=== PATIENT | male | born 1975 | race Caucasian/White ===

== ENCOUNTER 2016-06-25 13:45 | Emergency (ER) | payer OTHER ==
[~2016-06-25] VITALS: Ht 182.9 cm; Wt 110.5 kg
[2016-06-25 13:52] VITALS: TEMP 36.7; Ht 182.9 cm; Wt 110.5 kg
--- NOTE | 2016-06-25 14:03 | EMERGENCY ROOM VISIT NOTE ---
History First contact with patient: 13:56 Chief Complaint: HEADACHE Stated Complaint: HEADACHE History of Present Illness The patient is a 40 year old male who presents to the Emergency Room with complaints of "Headache". The patient states that Thursday he was skiing at [employer] when he accidentally fell backwards striking the occipital region of his head. He was wearing a helmet. Patient denies any loss of consciousness. He has had persistent blurred vision, headache as well as nausea. He states that when he woke up Thursday he developed a headache, neck pain, face pain as well as blurred vision and nausea on Thursday morning. Thursday symptoms all seem to worsen, and he was driving when he developed such blurred vision he had to wait one hour before driving again. Today he presents with nausea, blurred vision as well as a headache. He has taken 400 mg of ibuprofen this morning. Patient points to the midline portion of his neck overlying the spinous processes as the location of his neck pain. Review of Systems A complete 10-point Review of Systems was discussed with the patient, with pertinent positives and negatives listed in the History of Present Illness. All remaining Review of Systems questions can be considered negative unless otherwise specified. Past Medical/Surgical History Pneumonia, appendectomy Family History Cancer Social History Smoking Status: Never Smoker Social History: Patient lives at home with and kids and is currently employed. Current/Historical Medications No Active Prescriptions or Reported Meds Allergies Coded Allergies: No Known Allergies (Unverified , 06/25/16) Physical Exam Vital Signs Date Time Temp Pulse Resp B/P Pulse Ox O2 Delivery O2 Flow Rate FiO2 06/25/16 16:10 86 16 127/86 98 06/25/16 13:52 36.7 70 18 133/93 98 Room Air Physical Exam VITAL SIGNS - Vital signs and nursing notes were reviewed. The patient is afebrile, mildly hypertensive at 133/93, nontoxic tachycardia and saturating well on room air 98%. GENERAL -40-year-old male appearing his stated age. Communicates well with provider and answers questions appropriately. SKIN - Gross examination of the entire body surface demonstrates no abrasions or lacerations. HEAD - Normocephalic, Atraumatic. No Blanco's Sign or Raccoon's Eyes. No depressed skull fractures palpable. EYES - PERRL with EOMI bilaterally. Without subconjunctival hemorrhage. Palpebral conjunctiva pink and moist with no injection. EARS - No deformities of external structures noted on gross examination bilaterally. No hemotympanum present. No tympanic perforation noted. Handle of malleus, umbo, cone of light, pars tensa/flaccid all easily visualized. No nystagmus. NOSE - Midline and without cyanosis. No epistaxis or clear watery discharge noted. Septum midline without deviation. No septal hematoma noted. No overlying ecchymosis noted. MOUTH/OROPHARYNX - Without perioral cyanosis. Tongue midline with equal elevation of palate bilaterally. No blood noted in the oropharynx. No tonsillar hypertrophy, erythema, or exudates noted. No dental fractures noted. NECK - no tenderness to palpation over the cervical spinous processes. No cervical paraspinal muscle tenderness noted. LUNGS - Chest wall symmetric without accessory muscle use, intercostals retractions, or central cyanosis. CARDIAC - RRR with S1/S2. No murmur, rubs, or gallops appreciated. EXTREMITIES - No gross deformities noted of the extremities. No tenderness to palpation throughout the extremities. +5/5 strength noted in UE/LE bilaterally. NEUROLOGIC - Cranial nerves II through XII grossly intact. Sensory intact to light touch throughout. Patellar reflexes +2/4. PSYCH - A&Ox3 and cooperates fully with examiner. Pt is very pleasant and interacts well with examiner. Medical Decision & Procedures ER Provider Diagnostic Interpretation: CT HEAD WITHOUT CONTRAST (CT) CLINICAL HISTORY: Fall, dizziness, nausea, headache, blurred vision- 5 days COMPARISON STUDY: No previous studies for comparison. TECHNIQUE: Axial CT of the brain is performed from the vertex to the skull base. IV contrast was not administered for this examination. CT DOSE: 1115.07 mGy.cm FINDINGS: No intra or extra-axial mass lesions are visualized. There is no CT evidence of acute cortical infarction. There is no evidence of midline shift. There is no acute hemorrhage. No calvarial fractures are visualized. There is no evidence of pathologic ventricular dilatation. There is no evidence of acute sinusitis IMPRESSION: No acute intracranial findings Electronically signed by: Aman Calderón M.D. CT OF THE CERVICAL SPINE WITHOUT CONTRAST CLINICAL HISTORY: Neck pain following fall. COMPARISON STUDY: No previous studies for comparison. TECHNIQUE: Helical axial images of the cervical spine were obtained without IV contrast. Sagittal and coronal reconstructions were viewed. FINDINGS: Alignment of the cervical spine is anatomic. No acute fracture is identified. There is no prevertebral edema. Facet joints are intact. 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 IMPRESSION: No acute cervical spine fracture or subluxation. Electronically signed by: Ethan Scales M.D. 06/25/2016 2:47 PM Medical Decision Patient was seen and evaluated as above. After obtaining a thorough history and physical examination CT scan of the head and neck were obtained secondary to subjective and objective examination findings. Patient did not want anything for pain. Patient's subjective exam was concerning for concussion however this is an distinguishable from intracranial bleed on subjective and objective findings. The CT did not reveal any abnormality in the cervical spine discussed a congenital abnormality which was discussed with the patient but no acute findings. Because of the absence of acute findings of field with a diagnosis of concussion at this time is appropriate as well as closed head injury. The patient was nontoxic in appearance and was conversing well. He was instructed not to drive until dizzy free. Patient was instructed upon management of a concussion. I did provide him the number for the [facility] concussion clinic and informed him to follow up with him by calling their office as soon as possible. He is also to call his family doctor to schedule follow-up. In the event of any acute intracranial injury or neck injury I do feel that he is stable to go home and follow-up in the outpatient setting with those listed above. He was informed to return with any new/ concerning symptoms. The patient was educated on worrisome symptoms in which to return, had questions answered prior to discharge and was discharged home in good condition. In the evaluation and treatment of this patient, the following differential diagnoses were considered: Concussion, Contrecoup Injury, Brain Tumor, Depression, Encephalitis, Hypothyroidism, Meningitis, CVA, TIA, cervical spine fracture, cervical sprain, cervical strain, Migraine, Cluster Headache, Intracranial Abnormality, Intracranial Hemorrhage, Subdural Hematoma, Subarachnoid Hemorrhage, Hydrocephalus, among others. Impression Primary Impression: Closed head injury Additional Impression: Concussion Departure Information Dispostion Home / Self-Care Condition GOOD Prescriptions No Active Prescriptions or Reported Meds Referrals Jewel Gallo M.D.([facility]) (PCP) Patient Instructions A Signature Page, Concussion, My [facility] Additional Instructions You have been treated in the Emergency Department for a Closed Head Injury. CT Scan of your head/brain demonstrated no acute bleeding or other abnormalities. This does not completely rule out the risk for future damage to the brain. 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 This is not an emergent finding. For pain control, you can use the following osen-lri-oeaitjw medicines (if >12 yo): - Regular strength (325mg/tab) Tylenol (acetaminophen) 2 tabs every 4-6 hours as needed. Do not exceed 12 tablets in a 24 hour period. Avoid taking more than 4 grams (4000 mg) of Tylenol per day. This includes any other sources of acetaminophen you may take on a regular basis. - Regular strength (200 mg/tab) Advil (ibuprofen) 1-2 tabs every 4-6 hours as needed. Do not exceed a dose of 3200 mg per day. You should relax in a quiet, dark place for the rest of the day. Avoid any possible triggers including: cigarette smoke, caffeine, nicotine, chocolate, wine, beer, loud noises or music, or bright lights. You should schedule a follow-up appointment in 2-3 days with your Primary Care Provider or established Neurologist for further evaluation and treatment of your Headache. Please follow up with the concussion clinic for further evaluation and treatment of your injury: Please call this number soon as possible. [facility] [phone] [place] [address] [address] until you're dizzy free. Return to the Emergency Department if your current symptoms worsen despite treatment course outlined above, or if you develop any of the following symptoms : intractable pain despite aforementioned treatment course, visual disturbances , loss of vision, unilateral weakness or facial drooping, slurring of speech, loss of coordination, or loss of consciousness. Please limit your amount of TV, cell phone, and computer use. Please limit brain stimulating activities as we discussed. Please return to the emergency department with any new/concerning symptoms.
--- NOTE | 2016-06-25 14:44 | DIAGNOSTIC IMAGING REPORT ---
CT HEAD WITHOUT CONTRAST (CT) CLINICAL HISTORY: Fall, dizziness, nausea, headache, blurred vision- 5 days COMPARISON STUDY: No previous studies for comparison. TECHNIQUE: Axial CT of the brain is performed from the vertex to the skull base. IV contrast was not administered for this examination. CT DOSE: 1115.07 mGy.cm FINDINGS: No intra or extra-axial mass lesions are visualized. There is no CT evidence of acute cortical infarction. There is no evidence of midline shift. There is no acute hemorrhage. No calvarial fractures are visualized. There is no evidence of pathologic ventricular dilatation. There is no evidence of acute sinusitis IMPRESSION: No acute intracranial findings Electronically signed by: Aman Calderón M.D. 06/25/2016 2:42 PM
--- NOTE | 2016-06-25 14:49 | DIAGNOSTIC IMAGING REPORT ---
CT OF THE CERVICAL SPINE WITHOUT CONTRAST CLINICAL HISTORY: Neck pain following fall. COMPARISON STUDY: No previous studies for comparison. TECHNIQUE: Helical axial images of the cervical spine were obtained without IV contrast. Sagittal and coronal reconstructions were viewed. FINDINGS: Alignment of the cervical spine is anatomic. No acute fracture is identified. There is no prevertebral edema. Facet joints are intact. 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 IMPRESSION: No acute cervical spine fracture or subluxation. Electronically signed by: Ethan Scales M.D. 06/25/2016 2:47 PM
[2016-06-25 16:10] VITALS: BP 127/86; PULSE 86; O2SAT 98
== END 2016-06-25 16:12 | disposition home or self-care (01) ==
LOC: C.EDB 13:51 → C.EDD 16:12
DX: S06.0X0A Concussion without loss of consciousness, initial encounter (principal); V00.321A Fall from snow-skis, initial encounter; Y93.23 Activity, snow (alpine) (downhill) skiing, snowboarding, sledding, tobogganing and snow tubing

== ENCOUNTER 2022-10-16 16:02 | Observation (INO) ==
[2022-10-16] MEDS ORDERED: ONDANSETRON INJ 2 MG/ML 2 ML VIAL IV STA (16:49)
[2022-10-16] MEDS ORDERED: SODIUM CHLORIDE 0.9% 1000ML 1,000 ML IV ONE (16:49)
[2022-10-16 16:52] LABS: iSTAT Creatinine 1.2 mg/dl (0.6-1.3); iSTAT Hemoglobin 17.3 g/dl (14.0-18.0); iSTAT Ionized Calcium 1.13 mmol/l (1.12-1.32); iSTAT Potassium 4.3 mmol/L (3.3-5.0)
--- NOTE | 2022-10-16 17:01 | Emergency Department Note ---
History of Present Illness General Chief complaint: Headache Stated complaint: ?BRAIN BLEED,NUMBNESS IN FACE/HANDS,HEADACHE Time Seen by Provider: 10/16/22 16:36 Source: patient and family ( who is at the bedside) Mode of arrival: ambulatory Limitations: no limitations History of Present Illness Maximum Pain Intensity: 10 This patient is a 47-year-old male who comes in complaining of headache and blurred vision and tingling in his left arm as well as face. He is on Eliquis for a PE diagnosed in February is a history of factor V Leiden. He stayed up late last night and thinks his headache may have started last night he woke up this morning around 6:00 and he had a headache he got persistent throughout the day and during the day he started getting tingling in his face both sides and is mostly in the left now and tingling in the left fingertips. His vision feels blurry diffusely in both eyes. No trauma or injury. He tried Excedrin Migraine. He does have a history of ocular migraines. He has felt a little nauseated. No symptoms in the leg no difficulty speaking or swallowing he had no facial asymmetry or droop. No neck pain or trauma. No chest pain or shortness of breath. Home Medications Medication Instructions Recorded Confirmed Type apixaban 5 mg tablet (Eliquis) 5 mg PO BID 10/16/22 10/16/22 History Allergies Allergy/AdvReac Type Severity Reaction Status Date / Time No Known Allergies Allergy Unverified 06/25/16 15:30 Past Med/Surg History Medical History (Updated 10/16/22 @ 22:53 by Felix Shin MD) Factor V Leiden History of pulmonary embolism Surgical History History of appendectomy Family History (Updated 10/16/22 @ 20:13 by JOHN Krishnan) Grandfather (Maternal) Myocardial infarction Mother Stroke Social History Smoking Status: Never smoker Hx Alcohol Use: Yes Hx Substance Use: No Preferred Language: Turkish Communication Ability: Effective Beliefs That Will Affect Care: None Current Living Situation: Spouse and Family Current Living Situation Comment: and children Feels Safe at Home: Yes Assistive Devices: Glasses Review of Systems A total of 10 systems reviewed and were otherwise negative Physical Exam Vital Signs Vital Signs - 24 hr 10/16/22 16:20 10/16/22 16:34 10/16/22 17:11 Temperature 36 C L Temperature Source Temporal Artery Scan Pulse Rate 61 Pulse Rate [Apical] 51 L 50 L Respiratory Rate 20 18 18 Respiratory Effort / Characteristics Non-Labored Spontaneous Non-Labored Spontaneous Non-Labored Spontaneous Respiratory Depth Normal Normal Normal Respiratory Pattern Regular Blood Pressure 133/81 Blood Pressure [Right Arm] 123/85 138/92 Blood Pressure Mean 98 Blood Pressure Mean [Right Arm] 97 107 Pulse Oximetry 96 96 95 Oxygen Delivery Method Room Air Room Air Room Air Sepsis Recent Fever Within 48 Hours No Sepsis New/Unexplained Change in Mental Status No Sepsis Action Taken by Nursing No Action Required 10/16/22 17:53 10/16/22 18:27 Temperature Temperature Source Pulse Rate Pulse Rate [Apical] 54 L 51 L Respiratory Rate 16 18 Respiratory Effort / Characteristics Non-Labored Spontaneous Non-Labored Respiratory Depth Normal Normal Respiratory Pattern Blood Pressure Blood Pressure [Right Arm] 114/74 Blood Pressure Mean Blood Pressure Mean [Right Arm] 87 Pulse Oximetry 96 95 Oxygen Delivery Method Room Air Room Air Sepsis Recent Fever Within 48 Hours Sepsis New/Unexplained Change in Mental Status Sepsis Action Taken by Nursing General: Well developed well nourished middle-age male who appears in no acute distress, breathing comfortably on room air. Normal speech HEENT: Normal cephalic atraumatic. Pupils are equal round and reactive to light. Extraocular movements are intact. Oropharynx is pink with moist mucous membranes. No swelling of the mouth lips or tongue. Neck: Supple with a midline trachea. No meningeal signs or stiffness, no JVD or bruits. No Stridor. Chest: Clear to auscultation bilaterally. No wheezes or rhonchi. No increased work of breathing. Heart: Regular rate and rhythm without murmurs or gallops. Abdomen: Soft nontender, nondistended without rebound guarding or rigidity. Extremities: No cyanosis clubbing or edema. No calf tenderness or assymetry Spine/Back. Non tender to palpation. No CVA tenderness Skin: Good turgor without rashes. Neurologic exam: Cranial nerves two through 12 are intact. Motor and sensation are intact and symmetrical throughout. He is does feel light touch on his left side of his face but says it feels numb also in the left hand Course Administered Medications Apixaban (Apixaban 5 Mg Tablet) 5 mg PO BID PABLO Stop: 11/15/22 20:59 Last Admin: 10/16/22 21:31 Dose: 5 mg Documented By: TORRES Aspirin (Aspirin 81 Mg Ectab) 81 mg PO DAILY PABLO Stop: 11/15/22 20:44 Last Admin: 10/16/22 21:31 Dose: 81 mg Documented By: TRORES Sodium Chloride (Nss 1000ml) 1,000 mls @ 100 mls/hr IV .Q10H PABLO Stop: 10/17/22 16:12 Last Admin: 10/16/22 21:26 Dose: 100 mls/hr Documented By: TORRES Ondansetron HCl (Ondansetron Inj 2 Mg/Ml 2 Ml Vial) 4 mg IV Q6H PRN PRN Reason: Nausea And Vomiting Stop: 11/15/22 20:36 Last Admin: 10/16/22 21:21 Dose: 4 mg Documented By: TORRES Discontinued Medications Sodium Chloride (Nss 1000ml) 1,000 mls @ 999 mls/hr IV .Q1H1M ONE Stop: 10/16/22 17:49 Last Infusion: 10/16/22 18:12 Dose: 0 mls/hr Documented By: Admin: 10/16/22 17:10 Dose: 999 mls/hr Documented By: MAYRA Magnesium Sulfate/Dextrose (Magnesium Sulfate / D5w) 1 gm in 100 mls @ 200 mls/hr IV Q30M PABLO Stop: 10/16/22 19:03 Last Infusion: 10/16/22 20:18 Dose: 0 mls/hr Documented By: Admin: 10/16/22 19:20 Dose: 200 mls/hr Documented By: Infusion: 10/16/22 18:56 Dose: 200 mls/hr Documented By: Admin: 10/16/22 18:26 Dose: 200 mls/hr Documented By: MAYRA Valproic Acid 250 mg/ Dextrose 52.5 mls @ 55 mls/hr IV NOW STA Stop: 10/16/22 21:52 Last Admin: 10/16/22 21:26 Dose: 55 mls/hr Documented By: TORRES Ioversol (Optiray 320 500ml) 116 ml IV ONCE ONE Stop: 10/16/22 17:04 Last Admin: 10/16/22 17:04 Dose: 116 ml Documented By: RAMBO Ondansetron HCl (Ondansetron Inj 2 Mg/Ml 2 Ml Vial) 4 mg IV NOW STA Stop: 10/16/22 16:50 Last Admin: 10/16/22 17:13 Dose: 4 mg Documented By: LAMBERT Medical Decision Making Differential Diagnosis CVA, vascular disease, intracranial hemorrhage, migraine, electrolyte or metabolic abnormality, infection Medical Records Attestation: I reviewed the patient's medical records. Home Medications Current Medication List: was personally reviewed by me Laboratory Data Attestation: I reviewed the patient's lab results. 10/16/22 16:35 10/16/22 16:35 Lab Results 10/16/22 10/16/22 10/16/22 Range/Units 16:35 16:35 16:35 WBC 5.55 (4.8-10.8) K/ul RBC 5.55 (4.70-6.10) M/uL Hgb 17.6 (14.0-18.0) g/dl POC Hgb (14.0-18.0) g/dl Hct 49.8 (42.0-52.0) % POC Hct (42-52) % MCV 89.7 (80.0-100.0) fL MCH 31.7 (25.0-34.0) pg MCHC 35.3 (32.0-36.0) g/dL RDW Std Deviation 41.1 (36.4-46.3) fL RDW Coeff of Maryellen 12.6 (11.5-14.5) % Plt Count 237 (130-400) K/uL MPV 9.5 (9.4-12.4) fL Immature Gran % (Auto) 0.4 % Neut % (Auto) 62.7 % Lymph % (Auto) 23.6 % Casey % (Auto) 9.5 % Eos % (Auto) 3.1 % Baso % (Auto) 0.7 % Neut # (Auto) 3.48 (1.40-6.50) K/uL Lymph # (Auto) 1.31 (1.2-3.4) K/uL Casey # (Auto) 0.53 (0.11-0.59) K/uL Eos # (Auto) 0.17 (0-0.50) K/uL Baso # (Auto) 0.04 (0-0.2) K/uL Immature Gran # (Auto) 0.02 (0.01-0.20) K/uL ESR (0-15) mm/hr PT Cancelled INR Cancelled APTT Cancelled PTT Ratio Cancelled POC Sodium (135-144) mmol/L Sodium 140 (136-145) mmol/L POC Potassium (3.3-5.0) mmol/L Potassium 4.0 (3.5-5.1) mmol/L POC Chloride (101-112) mmol/L Chloride 107 (98-107) mmol/L Carbon Dioxide 25 (21-32) mmol/L POC Total CO2 (24-31) mmol/L Anion Gap 8 (3-11) POC Anion Gap (16-25) mmol/L POC BUN (7-18) mg/dl BUN 14 (6-23) mg/dl Creatinine 1.11 (0.6-1.4) mg/dl POC Creatinine (0.6-1.3) mg/dl Est Cr Clr Drug Dosing 104.3 ml/min Est GFR ( Amer) 89.9 ml/min Est GFR (Non-Af Amer) 77.6 ml/min BUN/Creatinine Ratio 12.6 (10-20) Glucose 80 (70-99(Fasting)) mg/dl POC Glucose (other) (70-99) mg/dl Calcium 9.4 (8.6-10.3) mg/dl POC Ioniz Calcium Rohini (1.12-1.32) mmol/l Magnesium 2.1 (1.7-2.4) mg/dl Total Bilirubin 1.2 H (0.2-1.0) mg/dl AST 28 (13-39) U/L ALT 33 (7-52) U/L Alkaline Phosphatase 76 (34-104) U/L Troponin I High Sens 6.0 (0-20) pg/ml Total Protein 7.3 (6.0-8.3) gm/dl Albumin 4.5 (3.4-5.0) gm/dl Globulin 2.8 (2.5-4.0) gm/dl Albumin/Globulin Ratio 1.6 (0.9-2) Lyme Disease IgG Ab (Negative) Lyme Disease IgM Ab (Negative) SARS-CoV-2, RNA, NAAT (NEGATIVE) 10/16/22 10/16/22 10/16/22 Range/Units 16:35 16:40 16:53 WBC (4.8-10.8) K/ul RBC (4.70-6.10) M/uL Hgb (14.0-18.0) g/dl POC Hgb 17.3 (14.0-18.0) g/dl Hct (42.0-52.0) % POC Hct 51 (42-52) % MCV (80.0-100.0) fL MCH (25.0-34.0) pg MCHC (32.0-36.0) g/dL RDW Std Deviation (36.4-46.3) fL RDW Coeff of Maryellen (11.5-14.5) % Plt Count (130-400) K/uL MPV (9.4-12.4) fL Immature Gran % (Auto) % Neut % (Auto) % Lymph % (Auto) % Casey % (Auto) % Eos % (Auto) % Baso % (Auto) % Neut # (Auto) (1.40-6.50) K/uL Lymph # (Auto) (1.2-3.4) K/uL Casey # (Auto) (0.11-0.59) K/uL Eos # (Auto) (0-0.50) K/uL Baso # (Auto) (0-0.2) K/uL Immature Gran # (Auto) (0.01-0.20) K/uL ESR 9 (0-15) mm/hr PT INR APTT PTT Ratio POC Sodium 141 (135-144) mmol/L Sodium (136-145) mmol/L POC Potassium 4.3 (3.3-5.0) mmol/L Potassium (3.5-5.1) mmol/L POC Chloride 103 (101-112) mmol/L Chloride (98-107) mmol/L Carbon Dioxide (21-32) mmol/L POC Total CO2 27 (24-31) mmol/L Anion Gap (3-11) POC Anion Gap 16.0 (16-25) mmol/L POC BUN 16 (7-18) mg/dl BUN (6-23) mg/dl Creatinine (0.6-1.4) mg/dl POC Creatinine 1.2 (0.6-1.3) mg/dl Est Cr Clr Drug Dosing ml/min Est GFR ( Amer) ml/min Est GFR (Non-Af Amer) ml/min BUN/Creatinine Ratio (10-20) Glucose (70-99(Fasting)) mg/dl POC Glucose (other) 86 (70-99) mg/dl Calcium (8.6-10.3) mg/dl POC Ioniz Calcium Rohini 1.13 (1.12-1.32) mmol/l Magnesium (1.7-2.4) mg/dl Total Bilirubin (0.2-1.0) mg/dl AST (13-39) U/L ALT (7-52) U/L Alkaline Phosphatase (34-104) U/L Troponin I High Sens (0-20) pg/ml Total Protein (6.0-8.3) gm/dl Albumin (3.4-5.0) gm/dl Globulin (2.5-4.0) gm/dl Albumin/Globulin Ratio (0.9-2) Lyme Disease IgG Ab Negative (Negative) Lyme Disease IgM Ab Negative (Negative) SARS-CoV-2, RNA, NAAT (NEGATIVE) 10/16/22 10/16/22 Range/Units 17:14 18:18 WBC (4.8-10.8) K/ul RBC (4.70-6.10) M/uL Hgb (14.0-18.0) g/dl POC Hgb (14.0-18.0) g/dl Hct (42.0-52.0) % POC Hct (42-52) % MCV (80.0-100.0) fL MCH (25.0-34.0) pg MCHC (32.0-36.0) g/dL RDW Std Deviation (36.4-46.3) fL RDW Coeff of Maryellen (11.5-14.5) % Plt Count (130-400) K/uL MPV (9.4-12.4) fL Immature Gran % (Auto) % Neut % (Auto) % Lymph % (Auto) % Casey % (Auto) % Eos % (Auto) % Baso % (Auto) % Neut # (Auto) (1.40-6.50) K/uL Lymph # (Auto) (1.2-3.4) K/uL Casey # (Auto) (0.11-0.59) K/uL Eos # (Auto) (0-0.50) K/uL Baso # (Auto) (0-0.2) K/uL Immature Gran # (Auto) (0.01-0.20) K/uL ESR (0-15) mm/hr PT 11.7 INR 1.1 APTT 29.7 PTT Ratio 1.1 POC Sodium (135-144) mmol/L Sodium (136-145) mmol/L POC Potassium (3.3-5.0) mmol/L Potassium (3.5-5.1) mmol/L POC Chloride (101-112) mmol/L Chloride (98-107) mmol/L Carbon Dioxide (21-32) mmol/L POC Total CO2 (24-31) mmol/L Anion Gap (3-11) POC Anion Gap (16-25) mmol/L POC BUN (7-18) mg/dl BUN (6-23) mg/dl Creatinine (0.6-1.4) mg/dl POC Creatinine (0.6-1.3) mg/dl Est Cr Clr Drug Dosing ml/min Est GFR ( Amer) ml/min Est GFR (Non-Af Amer) ml/min BUN/Creatinine Ratio (10-20) Glucose (70-99(Fasting)) mg/dl POC Glucose (other) (70-99) mg/dl Calcium (8.6-10.3) mg/dl POC Ioniz Calcium Rohini (1.12-1.32) mmol/l Magnesium (1.7-2.4) mg/dl Total Bilirubin (0.2-1.0) mg/dl AST (13-39) U/L ALT (7-52) U/L Alkaline Phosphatase (34-104) U/L Troponin I High Sens (0-20) pg/ml Total Protein (6.0-8.3) gm/dl Albumin (3.4-5.0) gm/dl Globulin (2.5-4.0) gm/dl Albumin/Globulin Ratio (0.9-2) Lyme Disease IgG Ab (Negative) Lyme Disease IgM Ab (Negative) SARS-CoV-2, RNA, NAAT NEGATIVE (NEGATIVE) Imaging Data Attestation: I personally reviewed and interpreted this imaging study as follows: My Impression: Head CTno hemorrhage or mass effect seen Radiologist's Impression: Head CT 10/16/22 16:[address] OF THE BRAIN; CT ANGIOGRAM OF THE BRAIN; CT ANGIOGRAM OF THE NECK CLINICAL HISTORY: Neurological deficit. Stroke like symptoms. Headache. COMPARISON STUDY: CT of the brain dated 06/25/2016. TECHNIQUE: Unenhanced axial CT scan of the brain is performed. Subsequently, following the IV administration of 116 of Optiray 320, CT angiogram of the head and neck was performed from the aortic arch to the vertex. Images are reviewed in the axial, sagittal, and coronal planes. 3-D MIPS images are created and assessed. IV contrast was administered without complication. All measurements were calculated based on NASCET criteria. A dose lowering technique was utilized adhering to the principles of ALARA. CT DOSE: 1247.23 mGy.cm FINDINGS: Brain parenchyma: The brain parenchyma is normal in appearance. There is no hemorrhage, mass effect, or evidence of acute territorial ischemia by CT criteria. There is no evidence of enhancing mass lesion on the angiogram phase images. The ventricles, sulci, and cisterns are normal in configuration. Mcintosh- white matter differentiation is preserved. No extra-axial fluid collection is seen. Thoracic aorta: Visualized portions of the thoracic aorta are normal in caliber. The aortic arch demonstrates 3-vessel variant anatomy. There is a bovine arch, and the left vertebral artery arises directly from the thoracic aorta. Right carotid arterial system: The right common carotid artery is widely patent, as are the right internal and external carotid arteries. Left carotid arterial system: The left common carotid artery is widely patent, as are the left internal and external carotid arteries. Vertebral arteries: The vertebral arteries are widely patent bilaterally noting mild right-sided dominance. Subclavian arteries: Widely patent bilaterally. Intracranial vasculature: The internal carotid arteries are patent at the skull base, as are the anterior and middle cerebral arteries bilaterally. The vertebrobasilar system and posterior cerebral arteries are widely patent. The right vertebral artery is dominant. There is a right posterior communicating artery. There is no aneurysm, high-grade stenosis, or focal vessel cut off seen throughout the intracranial circulation. Jugular veins: Patent bilaterally. Dural sinuses: Patent. Lung apices: Partially visualized upper lobe lung parenchyma appears clear. Soft tissues: The visualized pharyngeal soft tissues are normal in appearance noting angiographic phase technique. The oropharyngeal airway appears widely patent. The salivary and thyroid glands are normal in appearance. No cervical lymphadenopathy is seen. Skeletal structures: The calvarium appears intact. The cervical spine is within normal limits. Orbits: The bony orbits are intact. Orbital contents are normal as visualized. Sinuses and mastoids: There is mild mucosal thickening within the right frontal sinus and the anterior right ethmoid sinuses. Trace mucosal thickening is seen in the maxillary antra. The remaining paranasal sinuses are clear. The mastoid air cells are well pneumatized. IMPRESSION: 1. There is no hemorrhage, mass effect, or evidence of acute territorial ischemia by CT criteria. 2. Unremarkable CT angiogram of the brain. 3. Unremarkable CT angiogram of the neck. ACT 112: Negative or not required by law. Electronically signed by: Patrick Honeycutt M.D. 10/16/2022 5:16 PM Head CTA 10/16/22 16:[address] OF THE BRAIN; CT ANGIOGRAM OF THE BRAIN; CT ANGIOGRAM OF THE NECK CLINICAL HISTORY: Neurological deficit. Stroke like symptoms. Headache. COMPARISON STUDY: CT of the brain dated 06/25/2016. TECHNIQUE: Unenhanced axial CT scan of the brain is performed. Subsequently, following the IV administration of 116 of Optiray 320, CT angiogram of the head and neck was performed from the aortic arch to the vertex. Images are reviewed in the axial, sagittal, and coronal planes. 3-D MIPS images are created and assessed. IV contrast was administered without complication. All measurements were calculated based on NASCET criteria. A dose lowering technique was utilized adhering to the principles of ALARA. CT DOSE: 1247.23 mGy.cm FINDINGS: Brain parenchyma: The brain parenchyma is normal in appearance. There is no hemorrhage, mass effect, or evidence of acute territorial ischemia by CT criteria. There is no evidence of enhancing mass lesion on the angiogram phase images. The ventricles, sulci, and cisterns are normal in configuration. Mcintosh- white matter differentiation is preserved. No extra-axial fluid collection is seen. Thoracic aorta: Visualized portions of the thoracic aorta are normal in caliber. The aortic arch demonstrates 3-vessel variant anatomy. There is a bovine arch, and the left vertebral artery arises directly from the thoracic aorta. Right carotid arterial system: The right common carotid artery is widely patent, as are the right internal and external carotid arteries. Left carotid arterial system: The left common carotid artery is widely patent, as are the left internal and external carotid arteries. Vertebral arteries: The vertebral arteries are widely patent bilaterally noting mild right-sided dominance. Subclavian arteries: Widely patent bilaterally. Intracranial vasculature: The internal carotid arteries are patent at the skull base, as are the anterior and middle cerebral arteries bilaterally. The vertebro basilar system and posterior cerebral arteries are widely patent. The right vertebral artery is dominant. There is a right posterior communicating artery. There is no aneurysm, high-grade stenosis, or focal vessel cut off seen throughout the intracranial circulation. Jugular veins: Patent bilaterally. Dural sinuses: Patent. Lung apices: Partially visualized upper lobe lung parenchyma appears clear. Soft tissues: The visualized pharyngeal soft tissues are normal in appearance noting angiographic phase technique. The oropharyngeal airway appears widely patent. The salivary and thyroid glands are normal in appearance. No cervical lymphadenopathy is seen. Skeletal structures: The calvarium appears intact. The cervical spine is within normal limits. Orbits: The bony orbits are intact. Orbital contents are normal as visualized. Sinuses and mastoids: There is mild mucosal thickening within the right frontal sinus and the anterior right ethmoid sinuses. Trace mucosal thickening is seen in the maxillary antra. The remaining paranasal sinuses are clear. The mastoid air cells are well pneumatized. IMPRESSION: 1. There is no hemorrhage, mass effect, or evidence of acute territorial ischemia by CT criteria. 2. Unremarkable CT angiogram of the brain. 3. Unremarkable CT angiogram of the neck. ACT 112: Negative or not required by law. Electronically signed by: Patrick Honeycutt M.D. 10/16/2022 5:16 PM Neck CTA 10/16/22 16:[address] OF THE BRAIN; CT ANGIOGRAM OF THE BRAIN; CT ANGIOGRAM OF THE NECK CLINICAL HISTORY: Neurological deficit. Stroke like symptoms. Headache. COMPARISON STUDY: CT of the brain dated 06/25/2016. TECHNIQUE: Unenhanced axial CT scan of the brain is performed. Subsequently, following the IV administration of 116 of Optiray 320, CT angiogram of the head and neck was performed from the aortic arch to the vertex. Images are reviewed in the axial, sagittal, and coronal planes. 3-D MIPS images are created and assessed. IV contrast was administered without complication. All measurements were calculated based on NASCET criteria. A dose lowering technique was utilized adhering to the principles of ALARA. CT DOSE: 1247.23 mGy.cm FINDINGS: Brain parenchyma: The brain parenchyma is normal in appearance. There is no hemorrhage, mass effect, or evidence of acute territorial ischemia by CT criteria. There is no evidence of enhancing mass lesion on the angiogram phase images. The ventricles, sulci, and cisterns are normal in configuration. Mcintosh- white matter differentiation is preserved. No extra-axial fluid collection is seen. Thoracic aorta: Visualized portions of the thoracic aorta are normal in caliber. The aortic arch demonstrates 3-vessel variant anatomy. There is a bovine arch, and the left vertebral artery arises directly from the thoracic aorta. Right carotid arterial system: The right common carotid artery is widely patent, as are the right internal and external carotid arteries. Left carotid arterial system: The left common carotid artery is widely patent, as are the left internal and external carotid arteries. Vertebral arteries: The vertebral arteries are widely patent bilaterally noting mild right-sided dominance. Subclavian arteries: Widely patent bilaterally. Intracranial vasculature: The internal carotid arteries are patent at the skull base, as are the anterior and middle cerebral arteries bilaterally. The vertebrobasilar system and posterior cerebral arteries are widely patent. The right vertebral artery is dominant. There is a right posterior communicating artery. There is no aneurysm, high-grade stenosis, or focal vessel cut off seen throughout the intracranial circulation. Jugular veins: Patent bilaterally. Dural sinuses: Patent. Lung apices: Partially visualized upper lobe lung parenchyma appears clear. Soft tissues: The visualized pharyngeal soft tissues are normal in appearance noting angiographic phase technique. The oropharyngeal airway appears widely patent. The salivary and thyroid glands are normal in appearance. No cervical lymphadenopathy is seen. Skeletal structures: The calvarium appears intact. The cervical spine is within normal limits. Orbits: The bony orbits are intact. Orbital contents are normal as visualized. Sinuses and mastoids: There is mild mucosal thickening within the right frontal sinus and the anterior right ethmoid sinuses. Trace mucosal thickening is seen in the maxillary antra. The remaining paranasal sinuses are clear. The mastoid air cells are well pneumatized. IMPRESSION: 1. There is no hemorrhage, mass effect, or evidence of acute territorial ischemia by CT criteria. 2. Unremarkable CT angiogram of the brain. 3. Unremarkable CT angiogram of the neck. ACT 112: Negative or not required by law. Electronically signed by: Patrick Honeycutt M.D. 10/16/2022 5:16 PM ECG Data Attestation: I personally reviewed and interpreted this ECG as follows: Indication: + weakness Rate (beats per minute): 52 Rhythm: + sinus bradycardia ECG Intervals/blocks: + Normal QRS, + Normal QT and + Normal OK ECG [place]: + Normal ECG ST segments: + Normal ST segments ECG Findings: no PACs or no PVCs Comparison ECG Date: from (03/13/22) Change: no significant change MDM Narrative This patient comes in as described above. He was placed in room C5. I saw him and I was concerned for multiple potential etiologies including head bleed given the fact that he is on a blood thinner, stroke or vascular disease given the fact that he has factor V Leiden and he could also potentially have a migraine. His symptoms seem to start this morning and the tingling started sometime around noon. At this point he is outside the window for tPA/TNK but did call a stroke alert to expedite his care. IV access was tablet EKG was obtained and shows no ischemic changes or significant arrhythmia. I did a CAT scan of his head as well as CT angio of the head neck he had angiography before and says he does get somewhat nauseated so to give him Zofran 4 mg IV he was also given fluid bolus. He had extensive work-up. The patient was seen and evaluated by our telemetry neurologist, Dr. Wells, who discussed the patient at length with me. He agrees that he is outside the tPA window and also is on anticoagulants. He has no large vessel disease. He did recommend admitting the patient for further neurologic work-up but ocular migraine is the most likely diagnosis. He did recommend a MRI with an MRV as well given the fact that he has factor V Leiden to rule out a venous sinus thrombosis. He also recommended adding a sed rate and EVON which I did he recommended 2 g of magnesium IV which I did add also already given him IV fluids which she had recommended as well. He said that if he continues have headaches we could also try valproic acid 250 mg IV. I do think the patient needs to be admitted for further treatment and evaluation neurologic work-up [facility] for these measures Continuous cardiac monitoring: Orders placed in EMR for continuous cardiac monitoring: Upon my evaluation patient was noted to be normal sinus rhythm with a rate of 60. Impression & Plan Stroke-like symptoms, History of pulmonary embolism, Headache, Factor V Leiden, Current use of ferry terminal supervisor anticoagulation Discharge Plan Visit Data Chief Complaint: Headache Stated Complaint: ?BRAIN BLEED,NUMBNESS IN FACE/HANDS,HEADACHE ED Provider: Felix Shin Discharge Problem: Stroke-like symptoms, History of pulmonary embolism, Headache, Factor V Leiden, Current use of ferry terminal supervisor anticoagulation Patient Disposition: Admitted As Inpatient Discharge Instructions Interventions: ED Discharge Assessment Last Done: 10/16/22 21:10
[2022-10-16] MEDS ORDERED: OPTIRAY 320 500ml IV ONE (17:03)
--- NOTE | 2022-10-16 17:19 | CT Scan Report ---
UNENHANCED CT OF THE BRAIN; CT ANGIOGRAM OF THE BRAIN; CT ANGIOGRAM OF THE NECK CLINICAL HISTORY: Neurological deficit. Stroke like symptoms. Headache. COMPARISON STUDY: CT of the brain dated 06/25/2016. TECHNIQUE: Unenhanced axial CT scan of the brain is performed. Subsequently, following the IV adminis tration of 116 of Optiray 320, CT angiogram of the head and neck was performed from the aortic arch t o the vertex. Images are reviewed in the axial, sagittal, and coronal planes. 3-D MIPS images are cre ated and assessed. IV contrast was administered without complication. All measurements were calculate d based on NASCET criteria. A dose lowering technique was utilized adhering to the principles of ALA RA. CT DOSE: 1247.23 mGy.cm FINDINGS: Brain parenchyma: The brain parenchyma is normal in appearance. There is no hemorrhage, mass effect, or evidence of acute territorial ischemia by CT criteria. There is no evidence of enhancing mass lesi on on the angiogram phase images. The ventricles, sulci, and cisterns are normal in configuration. Gr ay-white matter differentiation is preserved. No extra-axial fluid collection is seen. Thoracic aorta: Visualized portions of the thoracic aorta are normal in caliber. The aortic arch demo nstrates 3-vessel variant anatomy. There is a bovine arch, and the left vertebral artery arises direc tly from the thoracic aorta. Right carotid arterial system: The right common carotid artery is widely patent, as are the right int ernal and external carotid arteries. Left carotid arterial system: The left common carotid artery is widely patent, as are the left internal medicine physician assistant al and external carotid arteries. Vertebral arteries: The vertebral arteries are widely patent bilaterally noting mild right-sided christin nance. Subclavian arteries: Widely patent bilaterally. Intracranial vasculature: The internal carotid arteries are patent at the skull base, as are the ante rior and middle cerebral arteries bilaterally. The vertebrobasilar system and posterior cerebral hernando gabriela are widely patent. The right vertebral artery is dominant. There is a right posterior communicat ing artery. There is no aneurysm, high-grade stenosis, or focal vessel cut off seen throughout the in tracranial circulation. Jugular veins: Patent bilaterally. Dural sinuses: Patent. Lung apices: Partially visualized upper lobe lung parenchyma appears clear. Soft tissues: The visualized pharyngeal soft tissues are normal in appearance noting angiographic pha se technique. The oropharyngeal airway appears widely patent. The salivary and thyroid glands are nor mal in appearance. No cervical lymphadenopathy is seen. Skeletal structures: The calvarium appears intact. The cervical spine is within normal limits. Orbits: The bony orbits are intact. Orbital contents are normal as visualized. Sinuses and mastoids: There is mild mucosal thickening within the right frontal sinus and the anterio r right ethmoid sinuses. Trace mucosal thickening is seen in the maxillary antra. The remaining paran kalpesh sinuses are clear. The mastoid air cells are well pneumatized. IMPRESSION: 1. There is no hemorrhage, mass effect, or evidence of acute territorial ischemia by CT criteria. 2. Unremarkable CT angiogram of the brain. 3. Unremarkable CT angiogram of the neck. ACT 112: Negative or not required by law. Electronically signed by: Patrick Honeycutt M.D. 10/16/2022 5:16 PM
[2022-10-16 17:49] LABS: Basophils # (auto) 0.04 K/uL (0-0.2); Basophils % (auto) 0.7 %; Eosinophils # (auto) 0.17 K/uL (0-0.50); Eosinophils % (auto) 3.1 %; Hematocrit (blood only) 49.8 % (42.0-52.0); Hemoglobin 17.6 g/dl (14.0-18.0); Immature Granulocytes # (auto) 0.02 K/uL (0.01-0.20); Immature Granulocytes % (auto) 0.4 %; Lymphocytes # (auto) 1.31 K/uL (1.2-3.4); Lymphocytes % (auto) 23.6 %; Mean Corpuscular Hemoglobin 31.7 pg (25.0-34.0); Mean Corpuscular Hgb Conc 35.3 g/dL (32.0-36.0); Mean Corpuscular Volume 89.7 fL (80.0-100.0); Mean Platelet Volume 9.5 fL (9.4-12.4); Monocytes # (auto) 0.53 K/uL (0.11-0.59); Monocytes % (auto) 9.5 %; Neutrophils # (auto) 3.48 K/uL (1.40-6.50); Neutrophils % (auto) 62.7 %; Platelet Count 237 K/uL (130-400); RDW Coefficient of Variation 12.6 % (11.5-14.5); RDW Standard Deviation 41.1 fL (36.4-46.3); Red Blood Count 5.55 M/uL (4.70-6.10); White Blood Count 5.55 K/ul (4.8-10.8)
[2022-10-16 17:58] LABS: Albumin Globulin Ratio 1.6 (0.9-2); Albumin Level 4.5 gm/dl (3.4-5.0); BUN Creatinine Ratio 12.6 (10-20); Bilirubin,Total 1.2 mg/dl (0.2-1.0); Calcium 9.4 mg/dl (8.6-10.3); Creatinine Clr Calc Pharmacy 104.3 ml/min; Est GFR (African American) 89.9 ml/min; Est GFR (Non-African American) 77.6 ml/min; Globulin 2.8 gm/dl (2.5-4.0); Magnesium 2.1 mg/dl (1.7-2.4); Total Protein 7.3 gm/dl (6.0-8.3)
[2022-10-16] MEDS: MAGNESIUM SULFATE / D5W 1 GM/100 ML BAG IV SCH ×2 (18:26→19:20)
--- NOTE | 2022-10-16 18:56 | History & Physical Report ---
Date of Service October 16, 2022 Assessment & Plan (1) Headache: (2) Stroke-like symptoms: Plan: Admit to telemetry Patient presenting from home with reports of severe headache and left facial and left hand numbness. In the ED, stroke alert was called. Head CT, head and neck CTA unremarkable. ?? Complex migraine Brain MRI and MRV to rule out dural sinus thrombus Receiving IVF and IV magnesium. If no improvement in headache, consider use of valproic acid as per telestroke neurologist. Lyme negative. EVON pending. Start ASA 81 mg Echo Neurology consult (3) History of pulmonary embolism: (4) Factor V Leiden: Plan: Continue Eliquis DVT PROPHYLAXIS On Eliquis Patient seen in collaboration with Dr. Montoya. I spent a total of 60 minutes coordinating, documenting, and providing care for this patient excluding time spent in the performance of separately billed services. This included personally reviewing all current laboratories and imaging studies, medication reconciliation, outpatient chart review, and discussion with specialists. History of Present Illness Chief Complaint: Headache, stroke symptoms Primary Care Provider: Camille Tejeda DO History obtained from patient and review of outpatient PCP records. Patient seen with Dr. Montoya. 47 year old male with PMH factor V Leiden, pulmonary embolism on Eliquis, and other problems listed below who presents to the ED for evaluation of headache and left facial and left hand numbness. Patient reports having a mild headache last evening. This morning whenever he woke up the headache continued. As the day went on, the headache worsened. Reports pain was along the front of his head bilaterally. Patient also reports blurry vision. He then developed left facial and left hand numbness. He reports associated nausea and vomiting. He also reports dizziness. Denies unilateral weakness. No facial droop or difficulty speaking. Patient then presented to the ED for further evaluation. Patient reports he otherwise has been feeling well recently. Denies chest pain or shortness of breath. No syncopal event. Denies abdominal pain, nausea, vomiting, diarrhea. No other recent illnesses, fevers, chills. No urinary symptoms. In the ED, head CT, head and neck CTAs are unremarkable for acute findings. Stroke alert was called and patient was not felt to be a tPA candidate. Labs are unremarkable. Patient was given IVF and magnesium. Allergies Allergy/AdvReac Type Severity Reaction Status Date / Time No Known Allergies Allergy Unverified 06/25/16 15:30 Home Medications Medication Instructions Recorded Confirmed Type apixaban 5 mg tablet (Eliquis) 5 mg PO BID 10/16/22 10/16/22 History Past Med/Surg History Medical History (Updated 10/16/22 @ 20:28 by JOHN Krishnan) Factor V Leiden History of pulmonary embolism Surgical History History of appendectomy Family History (Updated 10/16/22 @ 20:13 by JOHN Krishnan) Grandfather (Maternal) Myocardial infarction Mother Stroke Social History Smoking Status: Never smoker Hx Alcohol Use: Yes Hx Substance Use: No Preferred Language: Arabic Communication Ability: Effective Beliefs That Will Affect Care: None Current Living Situation: Spouse and Family Current Living Situation Comment: and children Feels Safe at Home: Yes Assistive Devices: Glasses Review of Systems 2 Review of Systems: ROS per HPI, all other systems reviewed and negative Physical Exam Physical Exam: Please refer to Dr. Montoya's addendum for physical exam. Results & Data Results & Data Vital Signs (Past 12 Hours) Vital Signs Temp Pulse Pulse Resp BP BP Pulse Ox 10/16/22 18:27 51 L 18 95 10/16/22 17:53 54 L 16 114/74 96 10/16/22 17:11 50 L 18 138/92 95 10/16/22 16:34 51 L 18 123/85 96 10/16/22 16:20 36 C L 61 20 133/81 96 O2 Del Method 10/16/22 18:27 Room Air 10/16/22 17:53 Room Air 10/16/22 17:11 Room Air 10/16/22 16:34 Room Air 10/16/22 16:20 Room Air Laboratory Results Short CBC 10/16/22 Range/Units 16:35 WBC 5.55 (4.8-10.8) K/ul Hgb 17.6 (14.0-18.0) g/dl Hct 49.8 (42.0-52.0) % Plt Count 237 (130-400) K/uL BMP 10/16/22 16:35 Sodium 140 Potassium 4.0 Chloride 107 Carbon Dioxide 25 BUN 14 Creatinine 1.11 Glucose 80 Calcium 9.4 Liver Function 10/16/22 Range/Units 16:35 Total Bilirubin 1.2 H (0.2-1.0) mg/dl AST 28 (13-39) U/L ALT 33 (7-52) U/L Alkaline Phosphatase 76 (34-104) U/L Albumin 4.5 (3.4-5.0) gm/dl Diagnostic Findings Head CT 10/16/22 16:[address] OF THE BRAIN; CT ANGIOGRAM OF THE BRAIN; CT ANGIOGRAM OF THE NECK CLINICAL HISTORY: Neurological deficit. Stroke like symptoms. Headache. COMPARISON STUDY: CT of the brain dated 06/25/2016. TECHNIQUE: Unenhanced axial CT scan of the brain is performed. Subsequently, following the IV administration of 116 of Optiray 320, CT angiogram of the head and neck was performed from the aortic arch to the vertex. Images are reviewed in the axial, sagittal, and coronal planes. 3-D MIPS images are created and assessed. IV contrast was administered without complication. All measurements were calculated based on NASCET criteria. A dose lowering technique was utili zed adhering to the principles of ALARA. CT DOSE: 1247.23 mGy.cm FINDINGS: Brain parenchyma: The brain parenchyma is normal in appearance. There is no hemorrhage, mass effect, or evidence of acute territorial ischemia by CT criteria. There is no evidence of enhancing mass lesion on the angiogram phase images. The ventricles, sulci, and cisterns are normal in configuration. Mcintosh- white matter differentiation is preserved. No extra-axial fluid collection is seen. Thoracic aorta: Visualized portions of the thoracic aorta are normal in caliber. The aortic arch demonstrates 3-vessel variant anatomy. There is a bovine arch, and the left vertebral artery arises directly from the thoracic aorta. Right carotid arterial system: The right common carotid artery is widely patent, as are the right internal and external carotid arteries. Left carotid arterial system: The left common carotid artery is widely patent, as are the left internal and external carotid arteries. Vertebral arteries: The vertebral arteries are widely patent bilaterally noting mild right-sided dominance. Subclavian arteries: Widely patent bilaterally. Intracranial vasculature: The internal carotid arteries are patent at the skull base, as are the anterior and middle cerebral arteries bilaterally. The vertebrobasilar system and posterior cerebral arteries are widely patent. The right vertebral artery is dominant. There is a right posterior communicating artery. There is no aneurysm, high-grade stenosis, or focal vessel cut off seen throughout the intracranial circulation. Jugular veins: Patent bilaterally. Dural sinuses: Patent. Lung apices: Partially visualized upper lobe lung parenchyma appears clear. Soft tissues: The visualized pharyngeal soft tissues are normal in appearance noting angiographic phase technique. The oropharyngeal airway appears widely patent. The salivary and thyroid glands are normal in appearance. No cervical lymphadenopathy is seen. Skeletal structures: The calvarium appears intact. The cervical spine is within normal limits. Orbits: The bony orbits are intact. Orbital contents are normal as visualized. Sinuses and mastoids: There is mild mucosal thickening within the right frontal sinus and the anterior right ethmoid sinuses. Trace mucosal thickening is seen in the maxillary antra. The remaining paranasal sinuses are clear. The mastoid air cells are well pneumatized. IMPRESSION: 1. There is no hemorrhage, mass effect, or evidence of acute territorial ischemia by CT criteria. 2. Unremarkable CT angiogram of the brain. 3. Unremarkable CT angiogram of the neck. ACT 112: Negative or not required by law. Electronically signed by: Patrick Honeycutt M.D. 10/16/2022 5:16 PM Head CTA 10/16/22 16:[address] OF THE BRAIN; CT ANGIOGRAM OF THE BRAIN; CT ANGIOGRAM OF THE NECK CLINICAL HISTORY: Neurological deficit. Stroke like symptoms. Headache. COMPARISON STUDY: CT of the brain dated 06/25/2016. TECHNIQUE: Unenhanced axial CT scan of the brain is performed. Subsequently, following the IV administration of 116 of Optiray 320, CT angiogram of the head and neck was performed from the aortic arch to the vertex. Images are reviewed in the axial, sagittal, and coronal planes. 3-D MIPS images are created and assessed. IV contrast was administered without complication. All measurements were calculated based on NASCET criteria. A dose lowering technique was utilized adhering to the principles of ALARA. CT DOSE: 1247.23 mGy.cm FINDINGS: Brain parenchyma: The brain parenchyma is normal in appearance. There is no hemorrhage, mass effect, or evidence of acute territorial ischemia by CT criteria. There is no evidence of enhancing mass lesion on the angiogram phase images. The ventricles, sulci, and cisterns are normal in configuration. Mcintosh- white matter differentiation is preserved. No extra-axial fluid collection is seen. Thoracic aorta: Visualized portions of the thoracic aorta are normal in caliber. The aortic arch demonstrates 3-vessel variant anatomy. There is a bovine arch, and the left vertebral artery arises directly from the thoracic aorta. Right carotid arterial system: The right common carotid artery is widely patent, as are the right internal and external carotid arteries. Left carotid arterial system: The left common carotid artery is widely patent, as are the left internal and external carotid arteries. Vertebral arteries: The vertebral arteries are widely patent bilaterally noting mild right-sided dominance. Subclavian arteries: Widely patent bilaterally. Intracranial vasculature: The internal carotid arteries are patent at the skull base, as are the anterior and middle cerebral arteries bilaterally. The vertebrobasilar system and posterior cerebral arteries are widely patent. The right vertebral artery is dominant. There is a right posterior communicating artery. There is no aneurysm, high-grade stenosis, or focal vessel cut off seen throughout the intracranial circulation. Jugular veins: Patent bilaterally. Dural sinuses: Patent. Lung apices: Partially visualized upper lobe lung parenchyma appears clear. Soft tissues: The visualized pharyngeal soft tissues are normal in appearance noting angiographic phase technique. The oropharyngeal airway appears widely patent. The salivary and thyroid glands are normal in appearance. No cervical lymphadenopathy is seen. Skeletal structures: The calvarium appears intact. The cervical spine is within normal limits. Orbits: The bony orbits are intact. Orbital contents are normal as visualized. Sinuses and mastoids: There is mild mucosal thickening within the right frontal sinus and the anterior right ethmoid sinuses. Trace mucosal thickening is seen in the maxillary antra. The remaining paranasal sinuses are clear. The mastoid air cells are well pneumatized. IMPRESSION: 1. There is no hemorrhage, mass effect, or evidence of acute territorial ischemia by CT criteria. 2. Unremarkable CT angiogram of the brain. 3. Unremarkable CT angiogram of the neck. ACT 112: Negative or not required by law. Electronically signed by: Patrick Honeycutt M.D. 10/16/2022 5:16 PM Neck CTA 10/16/22 16:[address] OF THE BRAIN; CT ANGIOGRAM OF THE BRAIN; CT ANGIOGRAM OF THE NECK CLINICAL HISTORY: Neurological deficit. Stroke like symptoms. Headache. COMPARISON STUDY: CT of the brain dated 06/25/2016. TECHNIQUE: Unenhanced axial CT scan of the brain is performed. Subsequently, following the IV administration of 116 of Optiray 320, CT angiogram of the head and neck was performed from the aortic arch to the vertex. Images are reviewed in the axial, sagittal, and coronal planes. 3-D MIPS images are created and assessed. IV contrast was administered without complication. All measurements were calculated based on NASCET criteria. A dose lowering technique was utilized adhering to the principles of ALARA. CT DOSE: 1247.23 mGy.cm FINDINGS: Brain parenchyma: The brain parenchyma is normal in appearance. There is no hemorrhage, mass effect, or evidence of acute territorial ischemia by CT criteria. There is no evidence of enhancing mass lesion on the angiogram phase images. The ventricles, sulci, and cisterns are normal in configuration. Mcintosh- white matter differentiation is preserved. No extra-axial fluid collection is seen. Thoracic aorta: Visualized portions of the thoracic aorta are normal in caliber. The aortic arch demonstrates 3-vessel variant anatomy. There is a bovine arch, and the left vertebral artery arises directly from the thoracic aorta. Right carotid arterial system: The right common carotid artery is widely patent, as are the right internal and external carotid arteries. Left carotid arterial system: The left common carotid artery is widely patent, as are the left internal and external carotid arteries. Vertebral arteries: The vertebral arteries are widely patent bilaterally noting mild right-sided dominance. Subclavian arteries: Widely patent bilaterally. Intracranial vasculature: The internal carotid arteries are patent at the skull base, as are the anterior and middle cerebral arteries bilaterally. The vertebrobasilar system and posterior cerebral arteries are widely patent. The right vertebral artery is dominant. There is a right posterior communicating artery. There is no aneurysm, high-grade stenosis, or focal vessel cut off seen throughout the intracranial circulation. Jugular veins: Patent bilaterally. Dural sinuses: Patent. Lung apices: Partially visualized upper lobe lung parenchyma appears clear. Soft tissues: The visualized pharyngeal soft tissues are normal in appearance noting angiographic phase technique. The oropharyngeal airway appears widely patent. The salivary and thyroid glands are normal in appearance. No cervical lymphadenopathy is seen. Skeletal structures: The calvarium appears intact. The cervical spine is within normal limits. Orbits: The bony orbits are intact. Orbital contents are normal as visualized. Sinuses and mastoids: There is mild mucosal thickening within the right frontal sinus and the anterior right ethmoid sinuses. Trace mucosal thickening is seen in the maxillary antra. The remaining paranasal sinuses are clear. The mastoid air cells are well pneumatized. IMPRESSION: 1. There is no hemorrhage, mass effect, or evidence of acute territorial ischemia by CT criteria. 2. Unremarkable CT angiogram of the brain. 3. Unremarkable CT angiogram of the neck. ACT 112: Negative or not required by law. Electronically signed by: Patrick Honeycutt M.D. 10/16/2022 5:16 PM Code Status & VTE Plan VTE Prophylaxis Plan VTE Prophylaxis will be ordered: No Reason for no VTE drug order: Contraindicated Supervising Physician Co-Signing Physician Notes Patient is a 47-year-old male with history of PE, factor V Leyden on chronic anticoagulation with Eliquis and no other significant past medical history presents with history of worsening bilateral frontal headache associated with left facial and predominantly left upper extremity numbness. He does have intermittent headaches with aura previously but describes current headache to be the worst headache of his life. He also states having associated dizziness, blurry vision, photophobia, nausea and vomiting. Please review HPI for complete details of presentation. Blood work unremarkable. CT head showed no acute intracranial abnormality. CTA head and neck unremarkable as well. Stroke alert was called while in the ED and was thought to have complex migraine. Physical Exam: Vitals signs as noted above General Appearance:Obese, no apparent distress Head: normocephalic, Atraumatic Eyes: normal inspection, EOMI Neck: supple, Trachea midline Respiratory/Chest: Normal breath sounds, CTA, No accessory muscle use Cardiovascular: S1, S2, No murmur Abdomen/GI:Soft, Non tender, Bowel sounds present Extremities/Musculoskeletal:normal inspection, no edema Neurologic/Psych:AAOX3, no focal neurological deficits, normal sensation Skin: normal color, warm Strokelike symptoms DD:TIA, complex hemiplegic migraine, R/O CVA Stroke work-up ordered Neurology consulted We will consider valproic acid if headache persistent Received magnesium while in ED Lyme screen negative Started on aspirin 81 mg Check orthostatics Gentle IV fluids Further management based on above studies Sinus bradycardia Chronic as per patient Monitor I personally reviewed the record. Patient is interviewed and examined at bedside. Patient's care is coordinated with [employer]. Please refer to the documentation above for details of patient's presentation and for discussion of other issues.
[2022-10-16 19:19] LABS: INR 1.1 (0.9-1.1); Partial Thromboplastin Ratio 1.1; Partial Thromboplastin Time 29.7 Seconds (21.0-31.0); Prothrombin Time 11.7 Seconds (9.0-12.0)
[2022-10-16 19:32] LABS: Lyme Ab IgG w/WB Rflx Negative (Negative); Lyme Ab IgM w/WB Rflx Negative (Negative)
[2022-10-16] MEDS ORDERED: ACETAMINOPHEN 325 MG TAB PO PRN (20:13)
[2022-10-16] MEDS ORDERED: PHARMACIST DISCHARGE MED REC CONSULT PRN (20:13)
[2022-10-16] MEDS ORDERED: ONDANSETRON INJ 2 MG/ML 2 ML VIAL IV PRN (20:37)
[2022-10-16] MEDS ORDERED: VALPROATE SOD 250 MG in DEXTROSE 5% 50 ML IV STA (20:55)
[2022-10-16] MEDS: SODIUM CHLORIDE 0.9% 1000ML 1,000 ML IV SCH (21:26)
[2022-10-16] MEDS: APIXABAN 5 MG TABLET PO SCH (21:31)
[2022-10-16] MEDS: ASPIRIN 81 MG ECTAB PO SCH (21:31)
--- NOTE | 2022-10-16 23:40 | Magnetic Resonance Report ---
Exam(s): MRI HEAD Without Contrast EXAM: MR Head Without Intravenous Contrast CLINICAL HISTORY: Reason for exam: headache. TECHNIQUE: Magnetic resonance images of the head/brain without intravenous contrast in multiple planes. COMPARISON: CT head 10/16/2022. CT head angiogram 10/16/2022. FINDINGS: Brain: Parenchymal volume loss with extensive T2-weighted/FLAIR hyperintensities in the periventricular and subcortical white matter. No hemorrhage. No acute infarct. Ventricles: Unremarkable. No ventriculomegaly. Bones/joints: Unremarkable. Sinuses: Unremarkable as visualized. No acute sinusitis. Mastoid air cells: Unremarkable as visualized. No mastoid effusion. Orbits: Unremarkable as visualized. IMPRESSION: 1. No evidence of acute infarction. 2. Parenchymal volume loss with extensive T2-weighted/FLAIR hyperintensities in the periventricular and subcortical white matter. These findings are nonspecific but advanced for patient age. The differential includes chronic microvascular ischemic changes and demyelination, infection/inflammation. Clinical correlation is recommended. Electronically signed by: Lewis Hilario MD 10/16/22 23:40 PM
--- NOTE | 2022-10-16 23:44 | Magnetic Resonance Report ---
Exam(s): MRV HEAD EXAM: MR Venography Head Without Intravenous Contrast CLINICAL HISTORY: Reason for exam: headache. TECHNIQUE: Magnetic resonance venography images of the head without intravenous contrast. COMPARISON: CT head angiogram 10/16/2022. FINDINGS: Superior sagittal sinus: Patent. Straight sinus: Patent. Transverse sinuses: Patent. Sigmoid sinuses: Patent. Internal jugular veins: Unremarkable as visualized. Internal cerebral and cortical veins: Unremarkable as visualized. IMPRESSION: No dural venous sinus thrombosis. Electronically signed by: Lewis Hilario MD 10/16/22 23:43 PM
[2022-10-17] MEDS ORDERED: oxyCODONE HCL IR 5 MG TAB (IMMEDIATE RELEASE) PO STA (00:57)
[2022-10-17 06:18] LABS: Basophils # (auto) 0.04 K/uL (0-0.2); Basophils % (auto) 0.9 %; Eosinophils # (auto) 0.34 K/uL (0-0.50); Eosinophils % (auto) 7.3 %; Hematocrit (blood only) 43.3 % (42.0-52.0); Immature Granulocytes # (auto) 0.01 K/uL (0.01-0.20); Immature Granulocytes % (auto) 0.2 %; Lymphocytes # (auto) 1.44 K/uL (1.2-3.4); Lymphocytes % (auto) 31.1 %; Mean Corpuscular Hemoglobin 31.6 pg (25.0-34.0); Mean Corpuscular Hgb Conc 34.6 g/dL (32.0-36.0); Mean Corpuscular Volume 91.4 fL (80.0-100.0); Mean Platelet Volume 9.5 fL (9.4-12.4); Monocytes # (auto) 0.46 K/uL (0.11-0.59); Monocytes % (auto) 9.9 %; Neutrophils # (auto) 2.34 K/uL (1.40-6.50); Neutrophils % (auto) 50.6 %; Platelet Count 180 K/uL (130-400); RDW Coefficient of Variation 12.6 % (11.5-14.5); RDW Standard Deviation 42.2 fL (36.4-46.3); Red Blood Count 4.74 M/uL (4.70-6.10); White Blood Count 4.63 K/ul (4.8-10.8)
[2022-10-17 06:40] LABS: BUN Creatinine Ratio 9.9 (10-20); Blood Urea Nitrogen 12 mg/dl (6-23); Calcium 8.3 mg/dl (8.6-10.3); Carbon Dioxide 27 mmol/L (21-32); Chloride 108 mmol/L (98-107); Chol HDL Ratio 5.4 (0-5); Cholesterol 173 mg/dl (0-200); Creatinine Clr Calc Pharmacy 96.9 ml/min; Est GFR (Non-African American) 69.9 ml/min; Glucose 90 mg/dl (70-99(Fasting)); HDL Cholesterol 32 mg/dl; LDL Cholesterol Calculated 120 mg/dl; Triglycerides 106 mg/dl (0-150); VLDL Cholesterol 21 mg/dl (0-30)
[2022-10-17 07:37] LABS: Potassium 4.4 mmol/L (3.5-5.1)
[2022-10-17 07:59] LABS: Estimated Average Glucose 103 mg/dl; Hemoglobin A1C 5.2 % (4.5-5.6)
[2022-10-17] MEDS: ASPIRIN 81 MG ECTAB PO SCH (08:27)
[2022-10-17] MEDS: APIXABAN 5 MG TABLET PO SCH (08:28)
--- NOTE | 2022-10-17 08:30 | Neurology Consultation ---
Date of Consultation October 17, 2022 Assessment & Plan (1) Complicated migraine: (2) Factor V Leiden: (3) Chronic cerebral ischemia: Plan this patient has a history of intermittent migraine headaches ( not having occurred for several years recently). He had a complicated migraine headache starting on October 15, peaking October 16, and having residual symptoms October 17. Currently he has some residual bifrontal headache and some tingling in his left hand with no focal findings, meningeal signs, or encephalopathy. Extensive imaging testing was unremarkable with no arterial or venous stenoses are anomalies, stroke or other acute issues. The patient has some mild to moder ate old small vessel ischemic disease and some mild atrophy seen on MRI likely consistent with the history of migraines and factor 5 Leiden. Overall, this was not a stroke and I do not believe this was a TIA - this is a complicated migraine. Recommendations: 1. Awaiting echocardiogram results 2. consider 81 mg aspirin tablet daily or every other day to prevent small vessel ischemic disease. 3. The patient needs no further neurologic testing and his headaches are not frequent enough for me to use medication for headache prophylaxis. We could consider a better medication to take as needed with a headache and I would choose Nurtec or Ubrelvy as needed. Rizatriptan (or other triptans) could be considered, but with his complicated migraine I want to avoid vaso constricting medication. 4. I can follow up as an outpatient, if desired. Overall, I spent a total of 65 minutes with this case including review of records, CT and MRI film review, report generation, direct evaluation the patient at bedside, and discussion of the case with the patient and RN at bedside and with Dr. López including differential diagnosis and treatment options. History of Present Illness Reason for Consultation: patient is a 47-year-old, who I was asked to see at the request of JOHN Krishnan, for neurologic evaluation regarding headache and other issues. Requesting Physician: JOHN Krishnan Attending Physician: Jerilyn López MD History of Present Illness This patient has a longstanding history of very intermittent migraine type headaches. They started middle school that occurred about once to twice a year over the years until more recently when he has not had any for several years. This started out with an aura with some right-sided cloudy vision followed by a sharp bifrontal throbbing headache. There is nausea and photophobia, but no phonophobia or vomiting. Typically the headaches would last 2-3 hours and did not really have much help with [id number] The patient denies any history of heart disease, hypertension, diabetes, or dyslipidemia. He was never a tobacco user or cigarette smoker. Did have a pulmonary embolus in February of 2022. He was found to be factor 5 Leiden positive. He has been on Eliquis since, and has no other history of clotting issues. Patient had a bifrontal headache without aura in the evening of October 15. He went to bed and woke up around 0600 with the same headache. Over course of day the headache became more intense and he noted blurry vision in both eyes and numbness and tingling in both hands. By the afternoon the left hand had more numbness and tingling down the right and there was some left facial numbness and tingling. Headache was intense. He arrived emergency room on October 16 at 4:20 p.m., with a temperature of 36.0, pulse 61 and regular, respiratory rate 20, blood pressure 133/81, and O2 saturation 96%. Neurologic examination was remarkable for some decreased sensation in the left hand a mild nature with no other focal deficits, meningeal signs, or encephalopathy. CBC was unremarkable. Sed rate was 9. CMP was unremarkable and Lyme antibody titers were negative. CT scan of the head was unremarkable. CT angiography of the head and neck were normal with no vessel anomalies or stenoses. MRV of the head showed no sinus thrombosis or other vessel issues MRI of the brain showed no acute stroke. There is some very mild generalized atrophy and mild (to, at best, moderate) old small vessel ischemic disease scattered in the white matter. I reviewed all of these films. This morning, CBC and Chem profile were unremarkable. Total cholesterol was 173 and triglycerides were 106. hemoglobin A1c was 5.2 Patient feels fine. He still has a mild to moderate headache bifrontally with some tingling in the fingertips of the left hand, otherwise he is back to baseline. He has a cardiac rhythm of bradycardia in the 40s to 50s without any other dysrhythmia. Allergies Allergy/AdvReac Type Severity Reaction Status Date / Time No Known Allergies Allergy Unverified 06/25/16 15:30 Home Medications Medication Instructions Recorded Confirmed Type apixaban 5 mg tablet (Eliquis) 5 mg PO BID 10/16/22 10/16/22 History Patient History Medical History (Updated 10/17/22 @ 08:23 by Kishan Quiñones MD) Factor V Leiden History of migraine headaches History of pulmonary embolism Surgical History History of appendectomy Family History Grandfather (Maternal) Myocardial infarction Mother Stroke Father , age 62 of AML AML (acute myelogenous leukemia) Social History Smoking Status: Never smoker Hx Alcohol Use: Yes Alcohol Intake Frequency: Monthly or Less Hx Substance Use: No Preferred Language: Bhutanese Communication Ability: Effective Beliefs That Will Affect Care: None Current Living Situation: Spouse and Family Current Living Situation Comment: and children current occupational status: employed current occupation: insurance claims specialist for [employer] Safe at Home: Yes Assistive Devices: Glasses Review of Systems Constitutional: no fever, no fatigue and no weakness Eyes: no diplopia, no eye pain and no worsening vision Ear, Nose, Mouth, Throat: no ear pain, no tinnitus, no hearing loss, no dizziness, no snoring, no hoarseness and no dysphagia Respiratory: no cough and no dyspnea Cardiovascular: no chest pain, no palpitations and no lightheadedness Gastrointestinal: no abdominal pain, no nausea and no vomiting Musculoskeletal: no back pain, no neck pain, no radicular pain, no joint pain and no myalgia Integumentary: no rash and no lesions Neurologic: + numbness and + headache(s); no gait abnormality, no localized weakness, no generalized weakness, no tingling, no tremor(s), no abnormal movements, no abnormal speech, no confusion and no memory loss Psychiatric: no depression, no irritability, no anxiety, no difficulty con centrating, no confusion and no hallucinations Endocrine: no fatigue and no flushing Hematologic / Lymphatic: no easy bleeding and no easy bruising Allergy / Immunological: no urticaria and no problem reported Exam (Neuro) Physical Exam: The patient is right-handed. The patient is awake, alert, and attentive. Speech is normal without any aphasia or dysarthria. The patient can name objects, repeat phrases, and has normal spontaneous speech. Mentation and thought processes are intact, with orientation to person, place and time, and normal fund of knowledge. Attention and concentration are normal. Mood and affect are normal and appropriate. General appearance and grooming are normal. Short and long-term memory are intact. Pupils are 4 mm bilaterally and reactive to light. Extraocular eye muscles are intact without nystagmus. Visual acuity and visual salas seem normal grossly to confrontation. There are no deficits to sensation in the face in all 3 distributions of the fifth cranial nerve bilaterally. Corneal reflexes are positive bilaterally. Facial strength and symmetry was normal bilaterally. Hearing seems normal bilaterally. Palate moves well without asymmetry. There is normal sternocleidomastoid and trapezius (shoulder shrug) strength bilaterally. Tongue is midline with good strength bilaterally. Neck has a full range of motion without discomfort. There are no cervical bruits bilaterally. There are no cranial or ocular bruits. Heart is without murmur. There is a regular rhythm and rate. Cervical, thoracic, and lumbar spine are nontender to palpation. Gait was not tested, but stance sitting up in bed is quite normal. With outstretched arms there is no drift. There are no resting, postural, or action tremors. There is no ataxia with finger to nose testing. There is good facility in the hands. No other abnormal involuntary movements are noted. Motor strength is 5/5 diffusely in the arms bilaterally including deltoids, biceps, triceps, brachioradialis, wrist flexors and extensors, chief analytics officer, and intrinsic hand muscles. Motor strength is 5/5 diffusely in the legs bilaterally including hip flexors, quadriceps, hamstrings, gastrocnemius, tibialis anterior, tibialis posterior, and Peroneii muscles. Toe extensors are normal and there is good bulk in the extensor digitorum brevis muscles bilaterally. The limbs have good tone without rigidity or spasticity. There is no atrophy noted in the muscles. Muscle bulk is normal, there is no tenderness to palpation, no myotonia to percussion, and no fasciculations seen. Sensory examination is intact to touch and pin throughout all 4 limbs diffusely. Reflexes are 1/4 in the biceps, triceps, brachioradialis, quadriceps, and Achilles tendons bilaterally. There is no clonus bilaterally. Toes are downgoing with plantar stimulation bilaterally. Peripheral pulses are present and of normal quality distally in all 4 limbs. There is no peripheral edema noted in the limbs. Results & Data Vital Signs (Past 12 Hours) Vital Signs Temp Pulse Pulse Resp BP BP Pulse Ox 10/17/22 08:07 36.9 C 62 18 125/66 94 10/17/22 07:15 42 L 10/16/22 20:14 47 L 10/16/22 22:03 50 L 10/17/22 03:31 36.5 C 50 L 18 105/55 L 93 10/16/22 23:02 36.7 C 52 L 18 128/79 94 10/16/22 20:13 10/16/22 21:10 59 L 18 124/87 100 10/16/22 20:39 36.8 C 10/16/22 20:12 52 L 18 132/88 95 10/16/22 20:14 52 L 18 132/88 95 Pulse Ox O2 Del Method O2 Del Method 10/17/22 08:07 Room Air 10/17/22 07:15 10/16/22 20:14 10/16/22 22:03 10/17/22 03:31 Room Air 10/16/22 23:02 Room Air 10/16/22 20:13 95 Room Air 10/16/22 21:10 Room Air 10/16/22 20:39 10/16/22 20:12 Room Air 10/16/22 20:14 Room Air PG Care Time/CCT Total # of Minutes Spent Total Time Spent with Patient: Total time spent is greater than 50% in coordination of care (as documented) at patient's floor/unit and/or counseling patient: Coding Level of Care Code 75941 IN/OBS CONSULT LVL 4,60M Diagnoses Complicated migraine G43.109 Factor V Leiden D68.51 Chronic cerebral ischemia I67.82
[2022-10-17] MEDS: SODIUM CHLORIDE 0.9% 1000ML 1,000 ML IV SCH (09:55)
--- NOTE | 2022-10-17 12:06 | Hospitalist Progress Note ---
Date of Service October 17, 2022 Assessment & Plan (1) Complicated migraine: Plan: Patient presenting from home with reports of severe headache and left facial and left hand numbness. Symptoms resolved this morning and the patient is ambulating without any difficulties Appreciate neurology input and recommendation Seems to have migraine headache recently Advised to have [id number] medications like Excedrin Migraine/ibuprofen to control migraine If no improvement with that he can try Nurtec or Ubrelvy from his PCP as needed to control migrainous headache (2) Chronic cerebral ischemia: Plan: Has chronic cerebral ischemia Aspirin 81 mg daily was recommended (3) Headache: (4) Stroke-like symptoms: Plan: Patient presenting from home with reports of severe headache and left facial and left hand numbness. In the ED, stroke alert was called. Head CT, head and neck CTA unremarkable. Complex migraine Brain MRI and MRV to rule out dural sinus thrombus-MRI and MRV are unremarkable Receiving IVF and IV magnesium. If no improvement in headache, consider use of valproic acid as per telestroke neurologist. Lyme negative. EVON pending. Start ASA 81 mg Echo-did not show any significant abnormality and no intra or atrial shunt Neurology consult-appreciate input and recommendation as above Symptoms Have completely resolved (5) History of pulmonary embolism: Plan: History of factor V Leiden and has been on medications for that-Eliquis (6) Factor V Leiden: Plan: Continue Eliquis DVT PROPHYLAXIS On Eliquis Discharge home this afternoon Admission and Anticipated Discharge Date Admission Date: October 16, 2022 Subjective 10/17/2022 The patient was seen and examined in telemetry unit He was admitted admitted with strokelike symptoms that came out secondary to complex migraine Condition resolved this morning and apparently investigations are unremarkable She was discharged home this afternoon in a good medical condition Review of Systems Review of Systems: All systems reviewed and are unremarkable except as noted below Physical Exam Physical Exam: Lying in bed comfortably Constitutional: well developed, well nourished and + obese; not ill appearing Eyes: PERRL, conjunctivae normal, anicteric sclerae ENMT: external ear and nose normal, oropharynx normal Neck: trachea midline, no thyromegaly Respiratory: no respiratory distress Auscultation: lungs clear to auscultation bilaterally Cardiovascular: Rate/Rhythm: regular rate and regular rhythm; not tachycardic Heart Sounds: normal S1 and normal S2; no murmur Extremities: no edema Gastrointestinal (Abdomen): Inspection/Auscultation: normal bowel sounds; abdomen not distended Percussion/Palpation: abdomen soft; abdomen nontender Musculoskeletal: No acute arthritis involving any of the joint Neurologic: normal touch/pain/proprioception and moves all extremities; no focal motor deficits Psychiatric: A+Ox3, euthymic affect Lymphatic: no cervical or axillary lymphadenopathy Results & Data Results & Data Vital Signs (Past 12 Hours) Vital Signs Temp Pulse Pulse Resp BP Pulse Ox O2 Del Method 10/17/22 11:36 36.8 C 71 18 122/79 93 Room Air 10/17/22 08:07 36.9 C 62 18 125/66 94 Room Air 10/17/22 07:15 42 L 10/17/22 03:31 36.5 C 50 L 18 105/55 L 93 Room Air Laboratory Results Short CBC 10/16/22 10/17/22 Range/Units 16:35 05:42 WBC 5.55 4.63 L (4.8-10.8) K/ul Hgb 17.6 15.0 (14.0-18.0) g/dl Hct 49.8 43.3 (42.0-52.0) % Plt Count 237 180 (130-400) K/uL BMP 10/16/22 10/17/22 10/17/22 16:35 05:42 07:01 Sodium 140 TNP 140 Potassium 4.0 TNP 4.4 Chloride 107 108 H Carbon Dioxide 25 27 BUN 14 12 Creatinine 1.11 1.21 Glucose 80 90 Calcium 9.4 8.3 L Liver Function 10/16/22 Range/Units 16:35 Total Bilirubin 1.2 H (0.2-1.0) mg/dl AST 28 (13-39) U/L ALT 33 (7-52) U/L Alkaline Phosphatase 76 (34-104) U/L Albumin 4.5 (3.4-5.0) gm/dl
--- NOTE | 2022-10-17 13:41 | Electrocardiogram Report ---
Test Reason : Blood Pressure : / mmHG Vent. Rate : 052 BPM Atrial Rate : 052 BPM P-R Int : 130 ms QRS Dur : 086 ms QT Int : 430 ms P-R-T Axes : 026 -29 -10 degrees QTc Int : 399 ms Sinus bradycardia Nonspecific ST abnormality Abnormal ECG When compared with ECG of 13-MAR-2022 10:14, No significant change was found Confirmed by Stefano Ag ([id number]) on 10/17/2022 1:41:02 PM Referred By: REFERRED SELF Confirmed By:Stefano Ag
--- NOTE | 2022-10-18 08:34 | Discharge Summary ---
Date of Service October 18, 2022 Admission HPI Per Admitting Provider History obtained from patient and review of outpatient PCP records. Patient seen with Dr. Montoya. 47 year old male with PMH factor V Leiden, pulmonary embolism on Eliquis, and other problems listed below who presents to the ED for evaluation of headache and left facial and left hand numbness. Patient reports having a mild headache last evening. This morning whenever he woke up the headache continued. As the day went on, the headache worsened. Reports pain was along the front of his head bilaterally. Patient also reports blurry vision. He then developed left facial and left hand numbness. He reports associated nausea and vomiting. He also reports dizziness. Denies unilateral weakness. No facial droop or difficulty speaking. Patient then presented to the ED for further evaluation. Patient reports he otherwise has been feeling well recently. Denies chest pain or shortness of breath. No syncopal event. Denies abdominal pain, nausea, vomiting, diarrhea. No other recent illnesses, fevers, chills. No urinary symptoms. In the ED, head CT, head and neck CTAs are unremarkable for acute findings. Stroke alert was called and patient was not felt to be a tPA candidate. Labs are unremarkable. Patient was given IVF and magnesium. Admission Exam Per Admitting Provider Vitals signs as noted above General Appearance:Obese, no apparent distress Head: normocephalic, Atraumatic Eyes: normal inspection, EOMI Neck: supple, Trachea midline Respiratory/Chest: Normal breath sounds, CTA, No accessory muscle use Cardiovascular: S1, S2, No murmur Abdomen/GI:Soft, Non tender, Bowel sounds present Extremities/Musculoskeletal:normal inspection, no edema Neurologic/Psych:AAOX3, no focal neurological deficits, normal sensation Skin: normal color, warm Principal Diagnosis Complicated migraine, factor V Leiden, chronic cerebral ischemia Discharge Exam Lying in bed comfortably Constitutional well developed, well nourished and + obese; not ill appearing Eyes PERRL, conjunctivae normal, anicteric sclerae ENMT external ear and nose normal, oropharynx normal Neck trachea midline, no thyromegaly Respiratory no respiratory distress Auscultation: lungs clear to auscultation bilaterally Cardiovascular Rate/Rhythm: regular rate and regular rhythm; not tachycardic Heart Sounds: normal S1 and normal S2; no murmur Extremities: no edema Gastrointestinal (Abdomen) Inspection/Auscultation: normal bowel sounds; abdomen not distended Percussion/Palpation: abdomen soft; abdomen nontender Neurologic normal touch/pain/proprioception and moves all extremities; no focal motor deficits Psychiatric A+Ox3, euthymic affect Lymphatic no cervical or axillary lymphadenopathy Discharge Data Allergies Allergy/AdvReac Type Severity Reaction Status Date / Time No Known Allergies Allergy Unverified 06/25/16 15:30 Consultations 10/16/22 18:05 ED Decision to Admit Stat 10/16/22 20:13 Consult Neurology Routine Ordered Studies 10/16/22 16:49 CT angio head w con Stat CT angio neck with con Stat CT head/brain wo con Stat 10/16/22 18:46 MR venography head wo con Urgent 10/16/22 18:46 MR brain wo con Routine Hospital Course (1) Complicated migraine: Patient presenting from home with reports of severe headache and left facial and left hand numbness. Symptoms resolved this morning and the patient is ambulating without any difficulties Appreciate neurology input and recommendation Seems to have migraine headache recently Advised to have [id number] medications like Excedrin Migraine/ibuprofen to control migraine If no improvement with that he can try Nurtec or Ubrelvy from his PCP as needed to control migrainous headache (2) Chronic cerebral ischemia: Has chronic cerebral ischemia Aspirin 81 mg daily was recommended (3) Headache: (4) Stroke-like symptoms: Patient presenting from home with reports of severe headache and left facial and left hand numbness. In the ED, stroke alert was called. Head CT, head and neck CTA unremarkable. Complex migraine Brain MRI and MRV to rule out dural sinus thrombus-MRI and MRV are unremarkable Receiving IVF and IV magnesium. If no improvement in headache, consider use of valproic acid as per telestroke neurologist. Lyme negative. EVON pending. Start ASA 81 mg Echo-did not show any significant abnormality and no intra or atrial shunt Neurology consult-appreciate input and recommendation as above Symptoms Have completely resolved (5) History of pulmonary embolism: History of factor V Leiden and has been on medications for that-Eliquis (6) Factor V Leiden: Continue Eliquis DVT PROPHYLAXIS On Eliquis Discharge home this afternoon Total Time Total Time Spent Total Time Spent (In Minutes): 35 minutes Discharge Plan Discharge Items Patient Disposition: Home - Self-Care Reason For Visit: HEADACHE, POSSIBLE TIA/CVA Discharge Diagnosis: Complicated migraine, factor V Leiden, chronic cerebral ischemia Condition on Discharge: Good Activity: Resume your previous activity Non-emergency contact: Primary Care Provider Call non-emergency contact if: you have any medication questions and your symptoms worsen Follow-up/Referrals: Camille Tejeda DO [Primary Care Provider] - (Date & Time 10/22/2022 10:50 AM Provider Camille Tejeda DO Department [facility] ) Diet: Heart Healthy Addtl Attending Provider Instructions: Please take precautions to avoid falls Your new medications will be aspirin 81 mg daily Please take your medications as advised Please give appointment with healthcare provider You can try Nurtec or Ubrelvy as recommended by the Neurologist for Migraine - Please talk to your PCP about this medication Pending Studies at Discharge: No Stand-Alone Forms: My [employer], Smoking Cessation Medications and DC Order Prescriptions: New aspirin 81 mg Tablet,Delayed Release (Dr/Ec) 81 mg PO DAILY Qty: 30 0RF Continued Eliquis 5 mg tablet 5 mg PO BID Discharge Orders: Discharge Order (Routine); Ordered 10/17/22 Ordered By: Jerilyn Fitzpatrick/Other Patient Handouts: Migraine Triggers, Migraine Prevention Admission Data Admit Date/Time: 10/16/22 18:42 Attending Provider: Jerilyn López Admit Provider: Peter Montoya Primary Care Provider: Camille Tejeda Other Providers: Peter Montoya ; Felix Martin Other Interventions: Discharge Summary Assessment (RN) Last Done: 10/17/22 12:18
[2022-10-20 16:11] LABS: Anti Nuclear Antibody Screen NEGATIVE (NEGATIVE)
== END 2022-10-17 13:00 | disposition home or self-care (01) ==
LOC: ED 16:02 → 2E 16:02 → SUATTDRO 18:42 → 2E 21:10